=== PATIENT | female | born 1940 | race Caucasian/White ===

== ENCOUNTER 2019-06-20 23:39 | Emergency (ER) | payer MEDICARE, MEDICAID ==
[~2019-06-20] VITALS: Ht 170.2 cm; Wt 63.0 kg
[2019-06-21] MEDS ORDERED: SODIUM CHLORIDE 0.9% 1,000 ML IV ONE (00:43)
[2019-06-21] MEDS ORDERED: MORPHINE SULFATE 4 MG/ML CPJ (NOT FOR IM USE) IV STA (00:43)
[2019-06-21] MEDS ORDERED: ONDANSETRON HCL 4MG/2ML INJ IV STA (00:43)
[2019-06-21 01:10] LABS: CHLORIDE 96 mEq/L (98-107)
[2019-06-21 01:12] LABS: BASOPHILS % 0.8 % (0.0-2.0); EOSINOPHILS % 1.3 % (0.0-5.0); HEMATOCRIT. 31.7 % (36.0-48.0); LYMPHOCYTES % 21.1 % (20.0-50.0); MEAN CORPUSCULAR HEMOGLOBIN 28.1 pg (28.0-32.0); MEAN CORPUSCULAR VOLUME 81.3 fL (81.0-99.0); MONOCYTES % 8.9 % (2.0-8.0); NEUTROPHILS % 67.9 % (40.0-76.0); PLATELET 384 x1000/uL (130-400); RED CELL DISTRIBUTION WIDTH 13.6 % (11.6-14.6)
[2019-06-21 04:05] VITALS: BP 139/68
== END 2019-06-21 04:15 | disposition home or self-care (01) ==
LOC: ER 23:39
DX: R10.9 Unspecified abdominal pain (principal)
CPT/HCPCS: 36415; 80053; 85025; 96374; 96375; 99283; J2270; J2405; J7030